=== PATIENT | male | born 1955 | race Caucasian/White ===

== ENCOUNTER 2019-03-03 20:06 | Inpatient (IN) | payer MEDICARE, MEDICAID ==
[~2019-03-03] VITALS: Ht 175.3 cm; Wt 109.8 kg
[2019-03-03 20:07] VITALS: BP 158/88
[2019-03-03] MEDS ORDERED: ATIVAN1 MG PO (20:15)
[2019-03-03] MEDS ORDERED: DEPAKOTE500 MG PO (20:24)
[2019-03-03] MEDS ORDERED: PRIMIDONE 250M250 MG PO (20:25)
[2019-03-03] MEDS ORDERED: GABITRIL2 MG PO ×2 (20:25)
[2019-03-03] MEDS ORDERED: VASOTEC10 MG PO (20:26)
[2019-03-03] MEDS ORDERED: HYDROCHLOROTHIA25 M1 PO (20:26)
[2019-03-03] MEDS ORDERED: FLOMAX0.4 MG PO (20:27)
[2019-03-03] MEDS ORDERED: VITAMIN D1000 UNI1 PO (20:27)
[2019-03-03] MEDS ORDERED: CALCIUM 600 +1 EAC1 PO (20:27)
[2019-03-03] MEDS ORDERED: CELEXA20 MG PO (20:27)
[2019-03-03] MEDS ORDERED: BENTYL 10 MG CA10 M1 PO (20:28)
[2019-03-03] MEDS ORDERED: ZINC30 M1 PO (20:28)
[2019-03-03 20:44] LABS: ABSOLUTE LYMPHOCYTES 1.3 thou/uL (0.8-5.3); ABSOLUTE MONOCYTES 0.8 thou/uL (0.0-1.2); BASOPHILS 0.4 %; EOSINOPHILS 0.3 %; HEMATOCRIT 42.9 % (42.0-52.0); HEMOGLOBIN 14.8 gm/dL (14.0-18.0); LYMPHOCYTES 18.8 %; MCH 33.8 pg (26.0-34.0); MCHC 34.6 g/dL (28.0-37.0); MCV 97.8 fL (80.0-100.0); MONOCYTES 10.8 %; MPV 7.4 fl. (7.2-11.1); NUCLEATED RBCS 0 /100WBC; PLATELET COUNT* 258 thou/uL (150-400); POLYS 69.7 %; RBC 4.39 mil/uL (4.50-6.00); RDW-CV 12.7 % (10.5-14.5); WBC 7.1 thou/uL (4.0-11.0)
[2019-03-03 20:51] LABS: ANION GAP 10 mmol/L (7-16); BUN 23 mg/dL (7-18); CALCIUM 8.9 mg/dL (8.5-10.1); CHLORIDE 106 mmol/L (98-107); CO2 29 mmol/L (21-32); GLUCOSE 106 mg/dL (70-99); SODIUM 145 mmol/L (136-145)
[2019-03-03 20:54] LABS: INR 1.1; PROTIME 10.8 Seconds (9.20-11.50)
[2019-03-03 21:02] LABS: ALBUMIN 3.6 g/dL (3.4-5.0); ALKALINE PHOSPHATASE 70 U/L (46-116); NT-PRO BRAIN NAT PEPTIDE 194 pg/mL (<300); SGOT 20 U/L (15-37); SGPT 27 U/L (30-65); TOTAL BILIRUBIN 0.2 mg/dL (<0.1-1.0); TOTAL PROTEIN 7.3 g/dL (6.4-8.2); TROPONIN-I LEVEL <0.06 ng/mL (<0.06)
[2019-03-03 21:27] LABS: SALICYLATE < 2.8 mg/dL (2.8-20.0)
[2019-03-03 21:28] LABS: ACETAMINOPHEN < 2 ug/mL (10-30)
[2019-03-03 21:40] LABS: URINE BILIRUBIN NEGATIVE (Negative); URINE BLOOD NEGATIVE (Negative); URINE CLARITY CLEAR; URINE COLOR YELLOW; URINE GLUCOSE-RANDOM NEGATIVE (Negative); URINE KETONES 1+ (Negative); URINE LEUKOCYTES-REFLEX NEGATIVE (Negative); URINE NITRITE-REFLEX NEGATIVE (Negative); URINE PROTEIN TRACE (Negative); URINE SPECIFIC GRAVITY 1.025 (1.005-1.030); URINE UROBILINOGEN 0.2 E.U./dl (0.2-1.0)
[2019-03-03 21:48] LABS: AMP/METHAMP Negative (Negative); BARBITURATES POSITIVE (Negative); BENZODIAZEPINES Negative (Negative); COCAINE Negative (Negative); METHADONE Negative (Negative); OPIATES Negative (Negative); PCP Negative (Negative); THC Negative (Negative)
[2019-03-03 22:25] VITALS: BP 154/76
[2019-03-04 04:00] VITALS: BP 115/62
--- NOTE | 2019-03-04 04:50 | NUR ---
PT RECIEVED FROM ED. PT IS DROWSY. SAT MAINTAINED IN NC. CALL LIGHT WITHIN REACH AND BED IN LOW POSITION. DENIES PAIN AND SOB. HOURLY ROUNDING DONE FOR PT SAFETY. ASSESSMENT COMPLETED TO THE BEST OF THE ABILITY PT WAS DROWSY.
[2019-03-04 08:30] VITALS: BP 114/67
--- NOTE | 2019-03-04 09:41 | NUR ---
ASSUMED CARE OF PATIENT. PATIENT AXOX2 AND PLEASENT. ASSESSMENT CHARTED. SPOKE WITH GUARDIAN THIS AM ABOUT PATIENT STATUS AT THIS TIME. CASE MANAGMENT WILL SPEAK WITH HER THIS AFTERNOON. CALL LIGHT IN REACH. CARDIDAC MONITOR IN PLACE.
--- NOTE | 2019-03-04 10:34 | EKG ---
[place] [address] ELECTROCARDIOGRAM REPORT Name: ARANZA HEATON Room: [address] ADM IN .R.#: [id number] Admission: 03/03/19 Attend Phys: Sherly Salgado MD Discharge: Date of : 57 Report #: [id number] THIS REPORT FOR: //name// [facility] ED Test Date: 2019-03-03 Test Time: 20:21:12 Pat Name: ARANZA HEATON Department: Room: [facility] Gender: M Public Health Aides Teacher: CARLOS : 1955 Requested By: Jennifer Wong Order Number: [id number] MD: Poli Neal Measurements Intervals [place] Rate: 73 P: 25 CT: 150 QRS: -9 QRSD: 87 T: -9 QT: 405 QTc: 447 Interpretive Statements Sinus rhythm Borderline T abnormalities, inferior leads No previous ECG available for comparison Electronically Signed On 03-04-2019 10:34:17 CDT by Poli Neal [email or web address] <ELECTRONICALLY SIGNED> By: Poli Neal MD, [facility] 03/04/19 1034 20 20 Poli Neal MD, [facility] /EPI
[2019-03-04 11:44] VITALS: BP 142/77
[2019-03-04] MEDS ORDERED: PRIMIDONE50 MG PO (13:05)
[2019-03-04] MEDS ORDERED: PROSCAR 5MG TABL5 M1 PO (14:08)
[2019-03-04] MEDS ORDERED: FLOMAX0.4 MG PO (14:08)
[2019-03-04] MEDS ORDERED: MIRALAX17 GM PO (14:09)
[2019-03-04] MEDS ORDERED: OMEPRAZOLE20 M2 PO (14:09)
[2019-03-04] MEDS ORDERED: CETIRIZINE HCL5 MG PO (14:10)
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
--- NOTE | 2019-03-04 16:35 | NUR ---
PATIENT PROGRESSING TOWARDS GOALS BUT BECOMES AGITIATED WHEN DOESN'T GET WHAT HE WANTS. CONTINUALLY ASKS SAME QUESTIONS AND BECOMES FRUSTRATED WITH ANSWER HE IS NOT WANTING. EXPLAINED MULTIPLE TIMES THAT WE TRY TO STAY ON HIS MEDICATION SCHEDULE CLOSE POSSIBLE BUT UNFORSEEN EVENTS COULD HINDER THAT. HE DOES NOT SEEM TO UNDERSTAND. MEDICATION LIST UPDATED AND HOME MEDS RESUMED THIS SHIFT. ECHO DONE AND ULTRASOUND DONE. PENDING RESULTS. TELE PSYCH CONSULT COMPLETED THIS SHIFT. RESULTS ON CHART. [facility] HAS NOTHING TO OFFER EXCEPT TELE PSYCH CONSULT. BED IN LOWEST POSITION, CALL LIGHT IN REACH.
[2019-03-04 16:39] VITALS: BP 128/72
--- NOTE | 2019-03-04 16:45 | 2DMMODE ---
[place] [address] 2 D/M-MODE ECHOCARDIOGRAM Name: ARANZA HEATON Room: [address] IN [facility]#: [id number] Admission: 03/03/19 Attend Phys: Sherly Salgado, Discharge: Date of : 57 Date of Service: 03/04/19 1645 Report #: [id number] THIS REPORT FOR: //name// APPROVED REPORT Study performed: 03/04/2019 15:54:26 EXAM: Comprehensive 2D, Doppler, and color-flow Echocardiogram Patient Location: In-Patient Room #: [facility] Status: routine BSA: 2.24 HR: 62 bpm BP: 142/77 mmHg Rhythm: NSR Other Information Study Quality: Good Indications Syncope 2D Dimensions IVSd: 10.99 (7-11mm) LVOT Diam: 21.42 (18-24mm) LVDd: 44.96 mm PWd: 12.14 (7-11mm) Ascending Ao: 35.43 (22-36mm) LVDs: 24.45 (25-40mm) Aortic Root: 35.43 mm Volumes Left Atrial Volume (Systole) LA ESV Index: 26.50 mL/m2 Aortic Valve AoV Peak Eduar.: 1.09 m/s AO Peak Gr.: 4.73 mmHg LVOT Max P.41 mmHg AO Mean Gr.: 2.48 mmHg LVOT Mean P.79 mmHg LVOT Max V: 1.05 m/s AO V2 VTI: 27.11 cm LVOT Mean V: 0.59 m/s BONNIE (VTI): 3.05 cm2 LVOT V1 VTI: 22.94 cm Mitral Valve E/A Ratio: 1.09 MV Decel. Time: 203.05 ms MV E Max Eduar.: 0.69 m/[place] [address] 2 D/M-MODE ECHOCARDIOGRAM Name: ARANZA HEATON Room: [address] IN [facility]#: [id number] Admission: 03/03/19 Attend Phys: Sherly Salgado, Discharge: Date of : 57 Date of Service: 03/04/19 1645 Report #: [id number] MV PHT: 58.88 ms MVA (PHT): 3.74 cm2 TDI E/Lateral E': 5.75 E/Medial E': 6.27 Medial E' Eduar.: 0.11 m/s Lateral E' Eduar.: 0.12 m/s Pulmonary Valve PV Peak Eduar.: 0.81 m/s PV Peak Gr.: 2.62 mmHg Left Ventricle The left ventricle is normal size. There is normal LV segmental wall motion. There is normal left ventricular wall thickness. Left ventricular systolic function is normal. The left ventricular ejection fraction is within the normal range. LVEF is 60-65%. The left ventricular diastolic function is normal. Right Ventricle The right ventricle is normal size. The right ventricular systolic function is normal. Atria The left atrium size is normal. The right atrium size is normal. Aortic Valve The aortic valve is normal in structure. No aortic regurgitation is present. There is no aortic valvular stenosis. Mitral Valve The mitral valve is normal in structure. Trace mitral regurgitation. No evidence of mitral valve stenosis. Tricuspid Valve The tricuspid valve is normal in structure. Trace tricuspid regurgitation. Unable to assess PA pressure. Pulmonic Valve The pulmonary valve is normal in structure. Mild pulmonic regurgitation. Great Vessels The aortic root is normal in size. IVC is normal in size and collapses >50% [place] [address] 2 D/M-MODE ECHOCARDIOGRAM Name: SUDARSHANARANZA Renetta Room: [address]#: [id number] Admission: 03/03/19 Attend Phys: Sherly Salgado, Discharge: Date of : 57 Date of Service: 03/04/19 1645 Report #: [id number] Pericardium There is no pericardial effusion. <Conclusion> LVEF is 60-65%. There is normal LV segmental wall motion. There is no aortic valvular stenosis. No aortic regurgitation is present. Trace mitral regurgitation. Trace tricuspid regurgitation. Mild pulmonic regurgitation. <ELECTRONICALLY SIGNED> By: Kleber Wilder MD, FACC 03/04/191644 44 44 Kleber Wilder MD, FACC /INF
[2019-03-04 20:00] VITALS: BP 129/64
[2019-03-05] VITALS: BP 120/64
[2019-03-05 04:00] VITALS: BP 130/68
--- NOTE | 2019-03-05 04:57 | NUR ---
PT CARE ASSUMED AT 1930. SAT MAINTAINED IN RA. ALERT AND ORIENTED TO HIMSELF. CALL LIGHT WITHIN REACH AND BED IN LOW POSITION. PT IS IMPULSIVE, EDUCATED ABOUT USING CALL LIGHT, NEEDS REINFORCEMENT. SEIZURE PRECAUTIONS MAINTAINED. DENIES PAIN AND SOB.HOURLY ROUNDING DONE FOR PT SAFETY.
[2019-03-05 05:43] LABS: CALCIUM 8.9 mg/dL (8.5-10.1); CREATININE 0.9 mg/dL (0.6-1.3); POTASSIUM 3.8 mmol/L (3.5-5.1)
[2019-03-05 08:00] VITALS: BP 135/73
--- NOTE | 2019-03-05 10:09 | NUR ---
Faxed referral to [facility]
--- NOTE | 2019-03-05 11:28 | NUR ---
PT ALERT, ORIENTED TO SELF ONLY. TELE TRACKING NSR AND ALL BSS ON ROOM AIR. PT VERY AGITATED THIS AM REGARDING MEDICATION SCHEDULE. REASSURANCE OFFERED. CONFIRMED MED SCHEDULE AND DOSE WITH TUCKER (PT SISTER). DENIES CP, SOA. NAD NOTED. EDUCATED ON SAFETY AND PLAN OF CARE. PLEASE SEE ASSESSMENT FOR ADDITIONAL INFORMATION. WILL CONT TO MONITOR
[2019-03-05 11:29] VITALS: BP 131/78
--- NOTE | 2019-03-05 15:41 | NUR ---
CM awaiting call back from Pt's sister/guardian to get info needed for the level 2 screening. CM should have the level 2 screening complete and sent to [facility] tomorrow. CM left for admissions at [facility] to see if they have a made a decision on whether they can accept Pt for LTC/respite. Following.
--- NOTE | 2019-03-05 17:24 | NUR ---
PT ARRIVED FROM TELE ABOUT 164. PT STABLE. AGREE WITH PREVIOUS ASSESSMENT. A&Ox4. IV IN L AC, PT SAYS THAT IT IS BOTHERING HIM AND WOULD LIKE IT OUT. MESSAGED ABOUT IV, OK TO TAKE OUT PER BESSIE. UP AD PATRICIA. EATING WELL. WAITING FOR PLACEMENT. CALL LIGHT WITHIN REACH. WILL CONTINUE TO MONITOR.
[2019-03-05 20:00] VITALS: BP 149/78
--- NOTE | 2019-03-06 07:51 | NUR ---
Patient is confused and somewhat arguemenative. I was told that he wanted his bedtime meds at 2000, so I did bring them in at that time with some food b/c I was told he wanted his meds with food also. He said he didn't want his meds at that time, that he wanted them at 2200. I did bring them in at 2200 and he did take them and I did explain what each one was. He has slept well. This am I had 3 meds to give him and he was upset and stating that he doesn't take them like that. He wanted to have his doctot talk to our doctor. He wanted his sister called which was done then he wanted me to go into his room and talk to her. But I did tell him to have her call the desk. I did speak with his sister on the desk phone and she said that he was upset b/c he thinks he's not getting all his seizure meds and that I had cut his seizure med in 1. I explained that it was the prinivil which is a BP med that was cut in half. This was explained to him but he continues to come out to the desk. At this time he is speaking to his sister Melissa again on the phone.
[2019-03-06 08:30] VITALS: BP 155/91
--- NOTE | 2019-03-06 09:32 | NUR ---
CM sent Level 2 screening to [facility], awaiting decision.
[2019-03-06 16:15] VITALS: BP 135/61
--- NOTE | 2019-03-06 16:27 | NUR ---
PT.COMPLETED TELE PSYCH. JOANA LEARY/[facility]ENDA CAME TO VISIT WITH PT. SHE DID NOT SAY AFTER VISIT IF THEY CAN ACCEPT PT.OR NOT. WAITING ON LEVEL 2 SCREENING FROM STATE.
--- NOTE | 2019-03-06 16:37 | NUR ---
PT REMAINED ALERT AND ORIENTED. PT HAS BEEN IRRITABLE DUE TO TIMING OF MEDS. PT STATES THEY ARE BEING GIVEN TO CLOSE TOGETHER SINCE THIS IS NOT THE TIME HE NORMALLY TAKES THEM AT HOME. PT NEEDS TIMMONS FLAVORING WHEN TAKING MEDS. WILL SEE HOW TIMMONS FLAVORING WORKS FOR PATIENT WHEN MEDS ARE NEEDED. TELEPSYCH CONSULT MADE. PT RESTING IN ROOM. FALL RISK PRECAUTIONS IN PLACE. HOURLY ROUNDING COMPLETED. WILL CONTINUE TO MONITOR.
[2019-03-06 20:00] VITALS: BP 144/72
[2019-03-07] VITALS: BP 118/61
[2019-03-07 04:00] VITALS: BP 158/86
--- NOTE | 2019-03-07 06:37 | NUR ---
vitals stable, afebrile. patient sleeping through the night. able to position self in bed. call light within reach. am med not adminsitered per patient's request, will be given by oncoming rn this morning.
[2019-03-07 08:00] VITALS: BP 131/101
[2019-03-07 16:00] VITALS: BP 140/72
--- NOTE | 2019-03-07 17:19 | NUR ---
PT REMAINED ALERT AND ORIENTED. PT RESTING IN ROOM. PT HAS ANXIETY OVER MEDS, EXPLAIN TO PATIENT ABOUT MEDS AND WHAT THEY ARE FOR AND WHAT HE IS GETTING. PT WANTED LAXATIVE, GAVE MILK OF MG WITH TIMMONS FLAVORING. FALL RISK PRECAUTIONS IN PLACE. HOURLY ROUNDING COMPLETED. WILL CONTINUE TO MONITOR.
[2019-03-07 20:50] VITALS: BP 104/56
--- NOTE | 2019-03-08 05:24 | NUR ---
PT REMAINED ALERT AND ORIENTED. MEDS GIVEN ORDERED WITH TIMMONS SYRUP ADDED WATER. PT STATED HE FEELS LIKE HIS MEDS CHANGES MAKING HIM LIGHT HEADED WHEN HE IS UP. HE AGREED TO CALL WHEN HE HAS TO GO TO THE BATHROOM, AND BED ALARM TURNED FOR SAFTY. NO SEIZURE. WILL CONTINUE TO MONITOR.
[2019-03-08 08:00] VITALS: BP 133/80
[2019-03-08 16:00] VITALS: BP 132/76
--- NOTE | 2019-03-08 17:08 | NUR ---
PT REMAINED ALERT. PT COMPLAINED ABOUT TIMING OF MEDS. ATTEMPTED TO TIME MEDS APPROPRIATELY DUE TO THIS HE WAS ONLY GETTING MEDS THREE TIMES A DAY INSTEAD OF 4 TIMES A DAY. PT WAS NOT UNDERSTANDING AND WAS ARGUING AT THE TRAUMA THERAPIST. SECURITY CAME BY AND TALKED WITH THE PATIENT TO DECREASE AGGITATION AND HAVE PT USE CALL LIGHT INSTEAD OF WALKING UP TO THE TRAUMA THERAPIST. FAMILY CAME AND SAW PATIENT. PT RESTING IN ROOM. FALL RISK PRECAUTIONS IN PLACE. HOURLY ROUNDING COMPLETED. WILL CONTINUE TO MONITOR.
[2019-03-08 20:00] VITALS: BP 174/92
[2019-03-08 21:35] VITALS: BP 174/92
--- NOTE | 2019-03-09 06:21 | NUR ---
AT CHANGE OF SHIFT PT WALKED OUT OF ROOM WITH ALL OF HIS BELONINGS IN BAGS. STAFF ASKED PT WHERE HE WAS GOING PT REPLIED" IM LEAVING, GOING HOME BECAUSE THEY CALLED SECURITY ON ME" PT APPEARED AGITATED AND WAS UNREDIRECTABLE. CALLED SECURITY AND 2 STAFF FOLLOWED PT SO WE WOULD KNOW WHERE HE WAS. VACUUM CASTER AND SECURITY JOINED STAFF NEAR THE EXIT FOR STAFF PARKING AND STOPPED HIM FROM LEAVING. PT BECAME INCREASINGLY AGITATED AND YELLING "THEY DIDNT HAVE TO CALL SECURITY ON ME I DIDNT DO NOTHING WRONG I WAS JUST ASKING ABOUT MY MILLIGRAM" MEASUREMENT TECHNICIAN AND SECURITY WERE ABLE TO TALK TO PT AND CALM HIM DOWN. PT AGREED TO RETURN TO HIS ROOM. MEASUREMENT TECHNICIAN WENT AND GOT A W/C FOR PT. I ASKED PT IF I COULD TAKE HIS BAGS AND CARRY THEM BACK, PT ALLOWED ME TO TAKE BAGS. STAFF WERE ABOUT TO POSITION W/C PT DROPPED TO THE GROUND LANDING ON HIS BOTTOM IN A SITTING POSITION THEN FELL BACK BUT DIDNT HIT HIS HEAD ON THE GROUND. PT ASSISTED TO W/C THEN BACK TO HIS ROOM INTO BED. NEURO CHECKS WNL VSS NOTIFIED DR PRESTON OBTAINED ORDERS FOR 1:1 AND PRHugh RICO. PT HAD NO FURTHER AGITATION THIS SHIFT. NOTIFIED FAMILY OF INCIDENT. WILL CONTINUE PLAN OF CARE.
[2019-03-09 08:30] VITALS: BP 150/93
--- NOTE | 2019-03-09 12:24 | NUR ---
CONOR SPOKE WITH JOANA BARILLAS OF [facility]. SHE SAID THEY ARE UNABLE TO ACCEPT HIM DUE TO HIS BEHAVIORS THAT BROUGHT HIM INTO THE HOSPITAL.
--- NOTE | 2019-03-09 14:19 | NUR ---
CALLED [facility] TO CHECK IF ONE OF HER FACILITIES MIGHT BE ABLE TO ACCEPT HIM FOR BEHAVIORAL HEALTH. SHE IS REACHING OUT TO [facility] IN [place] AND [facility]. HE WOULD NEED TO BE THERE UNTIL HIS INSPECTOR INSULATION COULD FIND A RESIDENTIAL TYPE SETTING FOR HIM. SHE WILL CALL BACK. HIS MOTHER AND SISTER-TUCKER TURCIOS ARE HIS GUARDIAN. PAPERWORK ON CHART.
--- NOTE | 2019-03-09 17:04 | NUR ---
PT REMAINED ALERT AND ORIENTED. PT GIVEN ATIVAN FOR ANGER AND TEARFULLNESS. PT EDUCATED ON MEDS. MYLANTA GIVEN FOR UPSET STOMACH. TALKED WITH SISTER MEETING SET UP TO GO OVER MEDS TOMORROW. FALL RISK PRECAUTIONS IN PLACE. ABDIRIZAK DC'D. HOURLY ROUNDING COMPLETED. WILL CONTINUE TO MONITOR.
[2019-03-09 17:23] VITALS: BP 126/81
[2019-03-09 20:00] VITALS: BP 162/78
--- NOTE | 2019-03-10 07:18 | NUR ---
PATIENT HAS SLEPT WELL THROUGHOUT THE NIGHT. VSS ON RA. NO C/O PAIN. PATIENT HAS BEEN CALM AND COOPERATIVE. MEDICATIONS GIVEN ORDERED AND CHARTED. PATIENT INSTRUCTED TO USE CALL LIGHT WHEN NEEDING ASSISTANCE. HOURLY ROUNDS MADE. AND FALL PRECAUTIONS IN PLACE. WILL CONTINUE WITH PLAN OF CARE AND NURSING TO MONITOR.
[2019-03-10 07:59] VITALS: BP 141/78
--- NOTE | 2019-03-10 13:47 | NUR ---
Nutrition: Pt assessed for LOS. Admitted with seizure and explosive behavior. H/o MR, HTN, OBE. Albumin 3.6. Regular diet. Wt: 242#. Looking for facility for placement once discharged. Appears at low nutrition risk.
[2019-03-10 15:23] VITALS: BP 136/85
--- NOTE | 2019-03-10 16:08 | NUR ---
PER [facility] FACILITIES, [facility] IN [place] CANNOT ACCEPT PT.TO THEIR FACILITY. THEY DO NOT FEEL THEY CAN MEET PTS NEEDS. SHE SAID SHE MADE CONTACT WITH [facility]. SHE WOULD BE WILLING TO LOOK AT INFORMATION. [phone]. WILL FAX REFERRAL TO HER. [facility] SENT BACK LEVEL 2 SCREEN,NEEDING SEVERAL CORRECTTIONS. CORRECTIONS MADE,DOCUMENTS SCANNED AND EMAILED BACK TO [facility].
--- NOTE | 2019-03-10 17:09 | NUR ---
PT REMAINED ALERT AND ORIENTED. PT RESTING IN ROOM. PT WAS FIXATED ON MEDS AGAIN TODAY. SISTER WILL BE IN LATER TODAY TO GO OVER MEDS WITH PT. PT WORKED WITH THERAPY TODAY. FALL RISK PRECAUTIONS IN PLACE. HOULRY ROUNDING COMPLETED. WILL CONTINUE TO MONITOR.
[2019-03-10 21:00] VITALS: BP 135/81
--- NOTE | 2019-03-11 04:23 | NUR ---
PATIENT HAS SLEPT WELL THROUGHOUT THE NIGHT. VSS ON RA. MEDICATIONS GIVEN ORDERED AND CHARTED. PATIENT INSTRUCTED TO USE CALL LIGHT WHEN NEEDING ASSISTANCE. HOURLY ROUNDS MADE. WILL CONTINUE WITH PLAN OF CARE AND NURSING TO MONITOR.
[2019-03-11 07:52] VITALS: BP 141/85
--- NOTE | 2019-03-11 12:07 | NUR ---
CONOR CALLED [facility] REGARDING REFERRAL MADE LAST WEEK. SPOKE WITH DMITRI. SHE SAID THEY WERE NOT ABLE TO ACCEPT PT. THEY DO NOT HAVE BED AVAILABILITY. [facility] s-[phone]. SHE SAID SHE WAS JUST FINISHING PAPER WORK ON PT. FOR EMERGENT MCC PLACEMENT FOR PT.,EITHER IN [place] OR [facility]. SHE WOULD BE SENDING IT TO [facility] FOR APPROVAL. SHE WAS UNSURE HOW LONG APPROVAL WOULD TAKE SO WILL STILL NEED TEMPORARY NH PLACEMENT.
[2019-03-11 17:14] VITALS: BP 129/70
--- NOTE | 2019-03-11 17:16 | NUR ---
PT REMAINED ALERT AND ORIENTED. PT RESTING IN ROOM. PT ASKED FOR LAXATIVE, GAVE MILK OF MAG WITH TIMMONS SYRUP. FALL RISK PRECAUTIONS IN PLACE. HOURLY ROUNDING COMPLETED. WILL CONTINUE TO MONITOR.
[2019-03-11 20:45] VITALS: BP 146/79
[2019-03-12 04:10] LABS: ABSOLUTE EOSINOPHILS 0.1 thou/uL (0.0-0.7); ABSOLUTE LYMPHOCYTES 2.6 thou/uL (0.8-5.3); ABSOLUTE MONOCYTES 0.7 thou/uL (0.0-1.2); ABSOLUTE NEUTROPHILS 2.9 thou/uL (1.6-8.1); BASOPHILS 0.7 %; EOSINOPHILS 1.2 %; HEMATOCRIT 43.8 % (42.0-52.0); HEMOGLOBIN 14.8 gm/dL (14.0-18.0); LYMPHOCYTES 41.8 %; MCH 33.6 pg (26.0-34.0); MCHC 33.9 g/dL (28.0-37.0); MONOCYTES 11.2 %; MPV 7.6 fl. (7.2-11.1); NUCLEATED RBCS 0 /100WBC; PLATELET COUNT* 283 thou/uL (150-400); POLYS 45.1 %; RBC 4.42 mil/uL (4.50-6.00); RDW-CV 13.1 % (10.5-14.5); WBC 6.3 thou/uL (4.0-11.0)
[2019-03-12 04:29] LABS: CALCIUM 9.3 mg/dL (8.5-10.1); POTASSIUM 4.3 mmol/L (3.5-5.1)
--- NOTE | 2019-03-12 04:46 | NUR ---
PATIENT HAS SLEPT WELL THROUGHOUT MOST OF THE NIGHT. VSS ON RA. NO C/O PAIN. PATIENT UPSET THAT LAB WOKE HIM UP AT 3:30 AM TO DRAW BLOOD AND STATED "I CAN'T GO BACK TO SLEEP NOW". PATIENT INSTRUCTED TO USE CALL LIGHT WHEN NEEDING ASSISTANCE. HOURLY ROUNDS MADE. WILL CONTINUE WITH PLAN OF CARE AND NURSING TO MONITOR.
[2019-03-12 07:55] VITALS: BP 107/57
--- NOTE | 2019-03-12 11:08 | NUR ---
BISTRO SERVER ASSISTING IN FINDING SHOR-TERM PLACEMENT IN LTC FOR THE PATIENT. D/C CLINICAL BIOSTATISTICS DIRECTOR ATTEMPTED TO CONTACT MARCUS WITH ADMISSIONS AT [facility], AND LEFT A MESSAGE TO RETURN CALL TO [facility] ABILITY TO ACCEPT THE PATIENT AT D/C. D/C CLINICAL BIOSTATISTICS DIRECTOR ALSO SPOKE TO ADMISSIONS WITH [facility] ([place]), [facility] ([facility]), AND [facility] ([place]) TO INFORM OF THE NEED OF SHORT-TERM LTC PLACEMENT AND FAXED THE REFERRAL TO ALL OF THE ABOVE LISTED FACILITIES. CM WILL REMAIN AVIALABLE TO ASSIST AND FOLLOW NEEDED. [facility] PHONE: [phone] FAX: [phone] [facility] PHONE: [phone] FAX: [phone] [facility] PHONE: [phone] FAX: [phone]
--- NOTE | 2019-03-12 11:31 | NUR ---
WENT IN AND TALKED TO PT WITH CASE MANAGEMENT ABOUT POSSIBLY GOING TO [facility] FOR A SHORT PERIOD OF TIME. A WORKER FROM [facility] WILL BE ARRIVING SHORTLY TO TALK TO PT ABOUT MAKING A TRANSITION.
--- NOTE | 2019-03-12 15:00 | NUR ---
HODA/INDER FROM [facility] VISITED PT. SHE SAID SHE THINKS HE WOULD BE OK FOR THEIR FACILITY. SHE SPOKE WITH RN. HODA WILL TAKE INFORMATION BACK TO TEAM AND CALL CM TOMORROW. HER NUMBER IS [phone]. SHE IS AWARE WE ARE WAITING ON LEVEL 2 SCREEN. BROTHER IN LAW BROUGHT SOME CLOTHES FOR PT.BUT DID NOT GO INTO VISIT HE DID NOT WANT TO UPSET PT. NURSING DID NOTIFY,TUCKER,LEGAL GUARDIAN THAT [facility] REP WAS COMING OUT TO VISIT PT.
[2019-03-12 16:29] VITALS: BP 148/78
--- NOTE | 2019-03-12 17:06 | NUR ---
PT A&Ox4. VITALS STABLE. UP AD PATRICIA USING WALKER. WORKED WELL AND WALKED HALLS WITH PT. TOOK MEDICATIONS WELL. DENIED PAIN. WAS CALM AND COOPERATIVE DURING SHIFT. CLOTHES BROUGHT IN BY BROTHER IN LAW TODAY TO TAKE WHEN TEMP PLACEMENT IS APPROVED. CALL LIGHT WITHIN REACH. WILL CONTINUE TO MONITOR.
--- NOTE | 2019-03-12 17:31 | NUR ---
PT HAD SEIZURE WHILE SITTING IN BED AT 1721 LASTING LESS THAN 1 MINUTE. DID NOT HIT HEAD NOR FALL OUT OF BED. POST VITALS TAKEN, BP 165/85 ON RT SIDE, OX 97%, HR 90, TEMP 98.9. TALKED TO TUCKER (GUARDIAN) AND STATED PT LAST HAD SEIZURES ON 03/03/19 AND 08/26/18. TUCKER ALSO STATED THAT HE WILL SLEEP FOR LONG PERIODS OF TIME AFTER HAVING A SEIZURE. SLEEPING IN BED. ALL 4 RAILS UP WITH PADS. WILL CONTINUE TO MONITOR.
[2019-03-12 20:00] VITALS: BP 153/82
--- NOTE | 2019-03-13 05:19 | NUR ---
Oriented x 2-3 and cooperative. He is op with stand by assist x 1 with walker to the bathroom. Vitals at start of shift were stable. He did state that his left arm was bothering him and didn't want BP taken on that arm. He was up frequently to the bathroom and voided and had some BM, he stated. Earlier scheduled home seizure meds were given at HS.since patient was drowsy when he usually takes them. He has been calm and cooperative. Neurology was consulted and Dr Dioxn did return the call and said that if patient has another seizure he should go to [facility]. He said we'll just watch him and he'll see him today. Patient did fall asleep around 2330 and has been sleeping soundly. All 4 rails are up, rails are padded and bedalarm is on.
--- NOTE | 2019-03-13 10:04 | NUR ---
CM followed up w/ [facility], , to see if they are willing to accept pt @ d/c. Per Alva, she will not committ to accepting pt until Level 2 eval comes back from state. Alva states she plans to revist pt again on Saturday or Saturday of next week to reevaluate to see "how he does over the weekend." CM to remain available to assist as needed.
[2019-03-13 20:00] VITALS: BP 128/68
--- NOTE | 2019-03-14 05:40 | NUR ---
ASSUMED CARE OF PT AFTER REPORT AT 1930. PT A&OX3. NOT ORIENTED TO TIME. SLOW TO RESPOND. VSS. PHYSICAL ASSESSMENT COMPLETED AND CHARTED. PT ON . PT COMPLAINED OF ABDOMINAL PAIN- PAIN MEDS GIVEN PER DEC. PT RESTED WELL ON BED. SEIZURE PRECAUTION OBSERVED. NO SEIZURE EPISODE THROUGH THE NIGHT. CALL LIGHT WITHIN REACH.
[2019-03-14 09:00] VITALS: BP 134/88
[2019-03-14 15:30] VITALS: BP 119/65
--- NOTE | 2019-03-14 16:26 | NUR ---
PATIENT ALERT AND ORIENTED X 3. FORGETFUL AT TIMES AND NEEDING REDIRECTION. UP WITH STAND BY ASSIST AND AMBULATING IN HALLWAY. VITAL SIGNS STABLE ON ROOM AIR. AFEBRILE. DENIES PAIN AND NAUSEA AT THIS TIME. FALL PRECAUTIONS IN PLACE AND BED ALARM ON. HOURLY ROUNDS MAINTAINED THROUGHOUT THE SHIFT. CALL LIGHT WITHIN REACH. NURSING WILL CONTINUE TO MONITOR.
[2019-03-14 20:00] VITALS: BP 142/71
--- NOTE | 2019-03-15 06:47 | NUR ---
Oriented x 3 and cooperative. Vitals at start of shift were stable. He did state that he can only have his BP taken on the right arm because his L arm still hurts from when they tried to get an IV in the left arm. He is up without any difficulty. He refused miralax at HS. He has slept well this shift.
[2019-03-15 10:38] VITALS: BP 135/69
--- NOTE | 2019-03-15 18:37 | NUR ---
PATIENT ALERT AND HAS HIS OWN WAY HE WANTS THINGS TO BE DONE. AMBULATED WITH WALKER WITH PT IN HALLWAY WITHOUT DIFFICULTY TODAY. DENIES PAIN OR NAUSEA. SEIZURE PRECAUTIONS IN PLACE. ON SEIZURE MEDICATION. NO SEIZURE ACTIVITY NOTED TODAY. USING CALL LIGHT WHEN NEEDING ASSIST.
[2019-03-15 20:30] VITALS: BP 147/85
--- NOTE | 2019-03-16 05:02 | NUR ---
Oriented x 3 and cooperative. He is doing well with walking with his walker independently in his room. Bedtime vitals were stable. He denies need for pain meds. He was in a good mood last evening and was telling jokes. He has been sleeping well this shift.
[2019-03-16 08:00] VITALS: BP 139/82
[2019-03-16 16:00] VITALS: BP 122/68
--- NOTE | 2019-03-16 16:31 | EEG ---
[address] [address] EEG STUDY REPORT Name: ARANZA HEATON Renetta Room: [address] IN .R.#: [id number] Admission: 03/03/19 Attend Phys: Sherly Salgado MD Discharge: Date of : 57 Report #: [id number] THIS REPORT FOR: //name// CC: Malcom Salgado DATE OF SERVICE: 03/04/2019 This patient is being evaluated for the possibility of seizure. EEG was done by placing the electrode by standard 10-20 system of electrode placement. Both referential and sequential montages were used for recording. Background activity in this patient's EEG is about 9 Hz and 30 microvolt. The patient became drowsy that is associated with bilateral slowing and vertex sharp waves. Throughout the record, no active epileptiform activity was noticed. IMPRESSION: This patient's EEG is somewhat intermixed with theta range slowing on both sides. That is a nonspecific abnormality, which can occur with dementia, cephalopathy, effect of psychotropic medication, etc. No active epileptiform activity was noticed during this record. <ELECTRONICALLY SIGNED> By: Sam Dixon MD 03/16/19 1631 [id number] [id number] Dixon MD /nt
--- NOTE | 2019-03-16 16:31 | CON ---
[address] [address] CONSULTATION Name: SUDARSHANARANZA Renetta Room: [address] IN .R.#: [id number] Admission: 03/03/19 Attend Phys: Sherly Salgado MD Discharge: Date of : 57 Report #: [id number] THIS REPORT FOR: //name// CC: Malcom Salgado DATE OF SERVICE: 03/04/2019 HISTORY OF PRESENT ILLNESS: This is a 63-year-old male patient who was admitted with a questionable seizure. The patient is a poor historian. I discussed the patient with Dr. Beard and I talked to the nurses looking after this patient. Initially, we were not able to find what medication he is taking for seizure. Subsequently, it looks like he is on multiple medications including primidone, Depakote and tiagabine which the nurses are going to give him. He goes to [facility] for his seizure disorder. He says he has a VNS stimulator. I reviewed the records in the computer and it looks like there is a lot of social situation going on in this patient. One of the records indicates that his speech was slurred and he was having some problem with the left side. I am not able to confirm that and I am not able to talk to any family member to confirm that history. REVIEW OF SYSTEMS: Positive for seizure. Further history is not available, what kind of seizure he has, but it looks like the seizures are intractable because the patient is on multiple medications and sees an epileptologist at [facility]. A 14-point review of system was attempted, but this is all I can get in this patient. Apparently, he has some trouble with depression and he is on antidepressant. He is also taking lorazepam, but I am not sure why he is taking lorazepam. That is all the history I can get for 14-point review of system. PAST MEDICAL HISTORY: Positive for seizure, but it is not clear what kind of seizure he has. FAMILY HISTORY: He does not provide any. SOCIAL HISTORY: He says he does not drink any alcohol, but I cannot confirm it from any independent source. PHYSICAL EXAMINATION: Indicates he is alert. He could not tell me what day it is. He did tell me what month it is. He could not tell me what hospital he is in. So, it looks like his memory and fund of knowledge is diminished, but his speech is present. Neuromuscular examination as checked for strength, sensation, reflexes and tone is symmetrical, but is very incomplete because of very poor cooperation. Cranial nerve examination was attempted, but the patient did not cooperate at all. There is no meningeal sign. He did not cooperate with the fundus examination. He is a well-[place] [address] CONSULTATION Name: SUDARSHANARANZA Renetta Room: [address] IN [facility]#: [id number] Admission: 03/03/19 Attend Phys: Sherly Salgado MD Discharge: Date of : 57 Report #: [id number] any dysmorphic features of eyes, ears and face. Blood pressure is 128/72, pulse is 68, temperature is 97.8. LABORATORY DATA: White count is normal at 7.1. CT scan of the head showed a question of hematoma on the head outside the brain. I am not sure if he ever hit his head and how did he get that. He denies any pain anywhere in the spine or any other place. IMPRESSION: It looks like this patient has intractable seizures. He is on multiple anticonvulsants and he goes to an epileptologist, but equally big problem is his psychiatric issues. I think that needs to be addressed. We can start him on the same medications as he was at home. They will not do MRI here with VNS stimulator. I am not sure what else we can do here neurologically. RECOMMENDATIONS: He needs the management of his psychiatric and multiple systemic problems, which I will defer to you, but neurologically, he is back on the medication and we will see how he does. Thank you very much. <ELECTRONICALLY SIGNED> By: Sam Dixon MD 03/16/19 1631 [id number] Dixon MD /nt
--- NOTE | 2019-03-16 17:28 | NUR ---
PT REMAINED ALERT AND ORIENTED. PT REFUSES NOON MYSOLINE, WANTS IT MORNING EVENING AND BED TIME. PT RESTING IN ROOM. FALL RISK PRECAUTIONS IN PLACE. HOURLY ROUNDING COMPLETED. WILL CONTINUE TO MONITOR.
[2019-03-16 22:00] VITALS: BP 147/85
--- NOTE | 2019-03-17 07:38 | NUR ---
PT ALERT AND ORIENTED. VSS ON RA. NIGHT MEDS GIVEN PER EMAR. PT SLEPT THROUGH SHIFT. PROTONIX NOT GIVEN YET THIS MORNING BECAUSE PT REQUEST TO NOT BE BOTHERED THAT EARLY IN THE MORNING. PT'S MEAL FOR TODAY WIRTTEN AND CALL IN TO KITCHEN. CALL LIGHT WITHIN REACH. HOURLY ROUNDINGS MADE. WILL CONTINUE PLAN OF CARE.
[2019-03-17 07:45] VITALS: BP 110/74
[2019-03-17 15:55] VITALS: BP 123/72
--- NOTE | 2019-03-17 17:28 | NUR ---
PT REMAINED ALERT AND ORIENTED. PT RESTING IN ROOM. PT WAS SUPPOSSED TO HAVE AN APPOINTMENT WITH DR. DHILLON FOR TOE NAIL CLIPPINGS. ALEJO CALLED AND STATED HE WOULD NOT COME AND WOULD NEED TO RESCHEDULE A NEW APPOINTMENT. SISTER STATED WOULD BRING IN NAIL CLIPPERS IN A COUPLE OF DAYS. FALL RISK PRECAUTIONS IN PLACE. HOURLY ROUNDING COMPLETED. WILL CONTINUE TO MONITOR.
[2019-03-17 21:00] VITALS: BP 144/81
--- NOTE | 2019-03-18 06:59 | NUR ---
PATIENT HAS SLEPT WELL THROUGHOUT THE NIGHT. VSS ON RA. NO C/O PAIN. PATIENT IS UP AD-PATRICIA AND STEADY. PATIENT INSTRUCTED TO USE CALL LIGHT WHEN NEEDING ASSISTANCE. HOURLY ROUNDS MADE. WILL CONTINUE WITH PLAN OF CARE AND NURSING TO MONITOR.
[2019-03-18 08:05] VITALS: BP 108/71
--- NOTE | 2019-03-18 14:00 | NUR ---
[place] FROM THE STATE HERE TO SEE PT. FOR LEVEL 2 SCREENING. GAVE HER UPDATED INFORMATION. SHE WILL WRITE REPORT AND TURN IT INTO THE STATE BY SATURDAY. FAXED UPDATED INFORMATION TO [facility],PER REQUEST.
[2019-03-18 16:36] VITALS: BP 127/69
--- NOTE | 2019-03-18 17:25 | NUR ---
PATIENT RESTING IN BED. PATIENT IS UP AD PATRICIA AND HAS WALKED IN HALLS TODAY. PATIENT DENIES ANY PAIN. PATIENT HAS GOOD APPETITE. PATIENT HAS BEEN CALM AND COOPERATIVE THROUGHOUT DAY. PATIENT DENIES ANY NEEDS AT THIS TIME. CALL LIGHT WITHIN REACH. WILL CONTINUE TO MONITOR.
[2019-03-18 21:30] VITALS: BP 154/84
--- NOTE | 2019-03-19 06:14 | NUR ---
PT ALERT AN ORIENTED. VSS ON RA. MEDS GIVEN PER EMAR. PT DENIES N/P THIS SHIFT. PT SLEPT THROUGH SHIFT. HOURLY ROUNDINGS MADE. CALL LIGHT WITHIN REACH. WILL CONTINUE TO MONITOR.
[2019-03-19 08:20] VITALS: BP 132/67
--- NOTE | 2019-03-19 11:53 | NUR ---
SPOKE WITH DIANE FORREST.[facility] [phone]. SHE SAID SHE HAS SENT IN PRIORITY OF NEEDS TO REGIONAL OFFICE TO SCORE. SHE HAS GIVEN PT'S SISTER A LIST OF PROVIDERS (CUSTODIAL/ISL'S) IN THE [facility]. SOME MAY DECLINE TO ACCEPT PT.DUE TO HIS CHOKING BEHAVIOR OF BROTHER IN LAW AND TRYING TO LEAVE HOSPITAL THAT ONE TIME. ONCE SCORING IS BACK ON P.O.N., THEY CAN TRY TO LOCATE BEST PLACEMENT FOR PT. SHE DID SAY IF PT STAYS 3 MONTHS IN A [facility] FACILITY WITHOUT INCIDENT, HE WOULD QUALIFY TO GO TO ANY CUSTODIAL.
--- NOTE | 2019-03-19 14:00 | NUR ---
PT.CAME TO NURSES STATION. 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 (HE MEANT TAMIKO REHMAN FROM [facility]). I TOLD HIM I WAS HIS CM HERE WHILE HE WAS AT THE HOSPITAL. HE WANTED TO KNOW WHAT TAMIKO HAD FOUND OUT. TOLD HIM SHE AND HIS SISTER WERE TRYING TO FIND A ASSISTED FOR HIM TO LIVE AT. HE SAID OH NO IM NOT GOING TO A ASSISTED. EXPLAINED THAT HIS SISTER DIDN'T FEEL SHE COULD TAKE CARE OF HIM ANYMORE. SHE WAS HIS GUARDIAN AND MAKES HIS DECISIONS. HE KEPT TALKING ABOUT IF HE WENT TO HIS MOM'S HOUSE,THERE ARE NO STAIRS THERE. HIS MOM IS IN A NURSING FACILITY. CM RECEIVED A PHONE CALL AND HE WALKED BACK TO HIS ROOM.
[2019-03-19 16:30] VITALS: BP 149/70
--- NOTE | 2019-03-19 17:30 | NUR ---
PATIENT RESTING IN BED. PATIENT IS UP AD PATRICIA IN HALLS. PATIENT DENIES ANY PAIN. PATIENT HAS BEEN CALM AND COOPERATIVE TODAY. PATIENT HAS GOOD APPETITE. PATIENT DENIES ANY NEEDS AT THIS TIME. CALL LIGHT WITHIN REACH.
--- NOTE | 2019-03-19 18:53 | NUR ---
TOOK OVER CARE OF PATIENT FROM NURSE. AGREE WITH ASSESSMENT. NO COMPLAINTS OF PAIN SINCE TAKING OVER CARE. IS UPSET WITH DIETARY AND POSSIBLE DISCHARGE PLACEMENT TOMORROW. EXPLAINED TO PATIENT THAT COULD BE DISCUSSED WITH CASE MANAGEMENT TOMORROW. PATIENT IS UP AD PATRICIA IN ROOM AND THE HALLWAYS. CALL LIGHT IS IN REACH WILL CONTINUE TO MONITOR.
[2019-03-19 20:00] VITALS: BP 144/82
--- NOTE | 2019-03-20 06:40 | NUR ---
PT AMBULATING IN HALLS WITH WALKER AT HS, UP TO BR WITHOUT DIFFICULTY. AGGRAVATED HE DID NOT GET HOT CHOCOLATE WITH HIS DINNER TRY, VOICED FRUSTRATION BUT CALMED.NO IV ACCESS. NO LABS DRAWN THIS MORNING.CM ASSISTING WITH DISCHARGE PLAN TO FACILITY OF SOME TYPE. ROOM AIR SAT 94%. PT HAS BEEN COOPERATIVE AND APPROPRIATE THIS SHIFT. CALL LITE IN EASY REACH.
[2019-03-20 09:40] VITALS: BP 134/79
--- NOTE | 2019-03-20 14:28 | NUR ---
PATIENT IS ALERT AND ORIENTED TODAY. UP AD PATRICIA IN ROOM WITH WALKER AND AMBULATING IN THE HALLWAYS. VITAL SIGNS STABLE ON ROOM AIR. NO COMPLAINTS OF PAIN. ONLY COMPLAINT HAS BEEN WITH DIETARY GETTING THE WRONG ORDER ON TRAY. CALL LIGHT IS IN REACH, WILL CONTINUE TO MONITOR.
--- NOTE | 2019-03-20 14:53 | NUR ---
UPDATED [facility] [phone] ON NO RESPONSE ON LEVEL 2 SCREEN YET. SHE SAID SHE WOULD CHECK BACK IN WITH US ON . UPDATED GUARDIAN,TUCKER PARDO.
[2019-03-20 16:00] VITALS: BP 140/76
--- NOTE | 2019-03-20 17:51 | NUR ---
PT TRANSFERRED TO ROOM 104. PT ALERT AND ORIENTED. RESTING IN ROOM. FALL RISK PRECAUTIONS IN PLACE. HOULRY ROUNDING COMPLETED. WILL CONTINUE TO MONITOR.
--- NOTE | 2019-03-21 05:50 | NUR ---
PATIENT HAS SLEPT WELL THROUGHOUT THE NIGHT. VSS ON RA. NO C/O PAIN. MEDICATIONS GIVEN ORDERED AND CHARTED. PATIENT IS UP AD-PATRICIA WITH WALKER AND STEADY ON FEET. PATIENT INSTRUCTED TO USE CALL LIGHT WHEN NEEDING ASSISTANCE. HOURLY ROUNDS MADE. WILL CONTINUE WITH PLAN OF CARE AND NURSING TO MONITOR.
[2019-03-21 08:00] VITALS: BP 100/50
[2019-03-21 16:00] VITALS: BP 109/68
--- NOTE | 2019-03-21 17:22 | NUR ---
SHIFT NOTE - PT COOPERATIVE WITH STAFF. NO IV ACCESS AT THIS TIME. WILL CONTINUE TO MONITOR.
[2019-03-21 21:00] VITALS: BP 137/76
[2019-03-22 04:29] LABS: HEMATOCRIT 41.8 % (42.0-52.0); HEMOGLOBIN 14.4 gm/dL (14.0-18.0); MCH 33.9 pg (26.0-34.0); MCHC 34.3 g/dL (28.0-37.0); MCV 98.8 fL (80.0-100.0); MPV 7.6 fl. (7.2-11.1); RBC 4.23 mil/uL (4.50-6.00)
[2019-03-22 05:10] LABS: ALBUMIN 3.5 g/dL (3.4-5.0); CALCIUM 9.1 mg/dL (8.5-10.1); TOTAL BILIRUBIN 0.4 mg/dL (<0.1-1.0); TOTAL PROTEIN 6.8 g/dL (6.4-8.2)
--- NOTE | 2019-03-22 05:49 | NUR ---
PT REMAINED ALERT AND ORIENTED. MEDS GIVEN ORDERED. PT DENIED PAIN. NO NAUSEA OR VOMITING. WILL CONTINUE TO MONITOR.
[2019-03-22 08:02] VITALS: BP 93/50
[2019-03-22 16:40] VITALS: BP 114/63
--- NOTE | 2019-03-22 19:00 | NUR ---
PATIENT INDEP IN , AMB IN [place] USING FWW. COOPERATIVE. EATING WELL. SHOWER TODAY. ~PREET
[2019-03-22 20:25] VITALS: BP 108/53
--- NOTE | 2019-03-23 05:19 | NUR ---
PT REMAINED ALERT AND ORIENTED. VITALS STABLE. MEDS GIVEN ORDERED. NO PAIN OR NAUSEA. WILL CONTINUE TO MONITOR.
[2019-03-23 08:00] VITALS: BP 135/74
--- NOTE | 2019-03-23 15:17 | NUR ---
ASSUMED CARE OF PT AT 0700. PT ASSESSMENT COMPLETE AND MEDICATION ADMINISTERED ORDERED. PT RESTING IN ROOM SO FAR THIS SHIFT. NO BEHAVIORS NOTED. PT ABLE TO MAKE NEEDS KNOWN, HAS NO C/O, WILL CONT TO MONITOR, CALL LIGHT IN REACH.
[2019-03-23 16:00] VITALS: BP 133/71
[2019-03-23 19:40] VITALS: BP 139/76
[2019-03-24] VITALS: BP 130/73
--- NOTE | 2019-03-24 06:18 | NUR ---
PT SLEPT ON AND OFF THIS SHIFT. ASSESSMENT DOCUMENTED. MEDS GIVEN PER E-MAR. NO IV ACCESS. PAIN MEDS GIVEN PER E-MAR FOR ARM/SHOULDER PAIN, PT STATES HE HAS NERVE PAIN IN HIS ARM FROM GETTING HIS LABS DRAWN AND ASKS IF HE CAN PLEASE NOT GET ANY MORE BLOOD DRAWN. PT REMAINED CALM THIS SHIFT. WILL CONTINUE WITH PLAN OF CARE.
[2019-03-24 08:00] VITALS: BP 142/73
[2019-03-24 10:24] VITALS: BP 130/73
--- NOTE | 2019-03-24 14:20 | NUR ---
LEVEL 2 SCREEN AND ASSESSMENT RECEIVED PER EMAIL FROM [facility] EMING PT.TO GO TO ANOTHER LEVEL OF CARE. FAXED DOCUMENTS TO [facility], ALONG WITH DISCHARGE ORDERS AND DA124 A,B AND C TO HER . SHE CONFIRMED THAT THEY COULD ACCEPT PT.TODAY. NOTIFIED TUCKER/SISTER AND LEGAL GUARDIAN. PT.TOLD. HE TOOK IT OK. WAS QUESTIONING AT FIRST BUT THEN SEEMED TO ACCEPT THIS INFORMATION. INFORMED SISTER HOW HE TOOK IT. SHE WILL CALL HIM SEBASTIAN. CHART COPIED TO GO WITH PT. KEATON DWYER TO REPORT. [facility] HERE AT THIS TIME TO TRANSPORT PT.
[2019-03-24] MEDS ORDERED: AMBIEN 5 MG TABL5 M1 PO (14:23)
[2019-03-24] MEDS ORDERED: ARTIFICIAL TEA1 EACH OTIC (14:24)
[2019-03-24] MEDS ORDERED: DULCOLAX5 MG PO (14:25)
[2019-03-24] MEDS ORDERED: GEODON20 MG PO (14:26)
[2019-03-24] MEDS ORDERED: IBUPROFEN 400400 M2 PO (14:26)
[2019-03-24] MEDS ORDERED: MELATONIN5 M1 PO (14:27)
[2019-03-24] MEDS ORDERED: MILK OF MA400 MG/5 M PO (14:28)
[2019-03-24] MEDS ORDERED: MAALOX ADVANCE355 ML PO (14:30)
[2019-03-24] MEDS ORDERED: RISPERDAL0.5 MG PO (14:31)
[2019-03-24] MEDS ORDERED: ONDANSETRON HCL4 M2 PO (14:32)
--- NOTE | 2019-03-24 14:50 | NUR ---
DISCHARGE TO [facility]. BELONGINGS GATHERED W/ ASST OF STAFF. MED CARDIOVASCULAR SURGICAL TECH AND MAGNET IN BELONGINGS. PATIENT ESCORTED TO AWAITING VEHICLE PER BY TRANSPORT SERVICE. PATIENT ALERT AND ORIENTED, NO NURSING NEEDS VOICED PRIOR TO DEPARTURE. REPORT CALLED TO HOLLY AT [facility] [phone].
== END 2019-03-24 14:45 | DRG 101 ==
LOC: M.ERS 20:06 → M.TBA-ER 22:08 → M.2W 22:08 → M.ORTHSURG 03-05 16:35 → M.3W 03-13 16:09 → M.ORTHSURG 03-20 17:22
PROVIDERS: Emergency Medicine; Family Medicine; Internal Medicine; ADMIT Internal Medicine
DX: G40.802 Other epilepsy, not intractable, without status epilepticus (principal); F84.9 Pervasive developmental disorder, unspecified; I10 Essential (primary) hypertension; N40.0 Benign prostatic hyperplasia without lower urinary tract symptoms; F63.81 Intermittent explosive disorder; E66.01 Morbid (severe) obesity due to excess calories; K59.00 Constipation, unspecified; Z88.0 Allergy status to penicillin; Z68.35 Body mass index [BMI] 35.0-35.9, adult; Z88.6 Allergy status to analgesic agent